=== PATIENT | male | born 1965 | race Caucasian/White ===

== ENCOUNTER 2017-07-09 14:08 | Observation (INO) | payer SELFPAY ==
[~2017-07-09] VITALS: Ht 180.3 cm; Wt 97.5 kg
[~2017-07-09 14:08] MED LIST: BACT800T5 PO; CEPH500C3 PO
[2017-07-09 14:09] VITALS: BP 140/80; PULSE 89; RESP 15; TEMP 98.5; O2SAT 99
--- NOTE | 2017-07-09 16:35 | PD ---
HPI Chief Complaint: Edema Time Seen by Provider: 16:33 Travel History International Travel<30 days: No Contact w/Intl Traveler<30days: No Traveled to known affect area: No History of Present Illness HPI 52-year-old male presents to the ED for evaluation of "2 or 3 day" history of right forearm pain, redness and swelling. Onset while the patient was clearing brush in his backyard. He is unsure if he was bitten by a bug or scratched by a thorn. He endorses pins and needles feeling in the affected hand over the last day. He denies limitations to range of motion. He denies fever, chills, nausea, vomiting. He states that he treated with Neosporin immediately after the incident. He seeks treatment today due to increased edema over the last day. Unsure of last tetanus immunization. [facility] Social History Alcohol Use: No Tobacco Use: No Substance Use: No Allergies-Medications (Allergen,Severity, Reaction): Coded Allergies: No Known Allergies (Unverified , 07/09/17) Reported Meds & Prescriptions Reported Meds & Active Scripts Active No Active Prescriptions or Reported Medications Review of Systems Except as stated in HPI: all other systems reviewed are Neg Physical Exam Narrative GENERAL: Well-nourished, well-developed white male in no acute distress. SKIN: Focused skin assessment warm/dry. HEAD: Normocephalic. EYES: No scleral icterus. No injection or drainage. NECK: Supple, trachea midline. No JVD or lymphadenopathy. CARDIOVASCULAR: Regular rate and rhythm without murmurs, gallops, or rubs. RESPIRATORY: Breath sounds equal bilaterally. No accessory muscle use. GASTROINTESTINAL: Abdomen soft, non-tender, nondistended. MUSCULOSKELETAL: No cyanosis, or edema. FOCUSED RIGHT UPPER EXTREMITY EXAM: 2+ radial pulse. There is significant edema of the hand. Compartments are soft. No crepitus noted. Patient is able to flex and extend the fingers and wrist. There is a single puncture wound of the mid forearm with surrounding erythema, edema and tenderness. There is an area of erythema which extends just proximal to the right axilla. No axillary LAD. Sensation intact to light touch distally. Cap refill less than 2 seconds. BACK: Nontender without obvious deformity. No CVA tenderness. Data Data Last Documented VS Vital Signs Date Time Temp Pulse Resp B/P (MAP) Pulse Ox O2 Delivery O2 Flow Rate FiO2 07/09/17 18:00 65 16 140/88 (105) 100 Room Air 07/09/17 14:09 98.5 Orders Orders Complete Blood Count With Diff (07/09/17 16:24) Comprehensive Metabolic Panel (07/09/17 16:24) Blood Culture (07/09/17 16:24) Tetanus/Diphtheria Tox Adult (Tetanus/Di (07/09/17 16:45) Vancomycin Inj (Vancomycin Inj) (07/09/17 17:30) Sodium Chlor 0.9% 1000 Ml Inj (Ns 1000 M (07/09/17 17:30) Ketorolac Inj (Toradol Inj) (07/09/17 17:30) Admit Order (Ed Use Only) (07/09/17 18:14) Labs Laboratory Tests Test 07/09/17 16:30 White Blood Count 8.1 TH/MM3 Red Blood Count 4.97 MIL/MM3 Hemoglobin 16.1 GM/DL Hematocrit 47.9 % Mean Corpuscular Volume 96.4 FL Mean Corpuscular Hemoglobin 32.3 PG Mean Corpuscular Hemoglobin Concent 33.5 % Red Cell Distribution Width 14.9 % Platelet Count 275 TH/MM3 Mean Platelet Volume 7.4 FL Neutrophils (%) (Auto) 56.1 % Lymphocytes (%) (Auto) 25.9 % Monocytes (%) (Auto) 7.3 % Eosinophils (%) (Auto) 10.4 % Basophils (%) (Auto) 0.3 % Neutrophils # (Auto) 4.5 TH/MM3 Lymphocytes # (Auto) 2.1 TH/MM3 Monocytes # (Auto) 0.6 TH/MM3 Eosinophils # (Auto) 0.8 TH/MM3 Basophils # (Auto) 0.0 TH/MM3 CBC Comment DIFF FINAL Differential Comment Blood Urea Nitrogen 12 MG/DL Creatinine 0.89 MG/DL Random Glucose 92 MG/DL Total Protein 6.9 GM/DL Albumin 3.3 GM/DL Calcium Level 8.3 MG/DL Alkaline Phosphatase 100 U/L Aspartate Amino Transf (AST/SGOT) 19 U/L Alanine Aminotransferase (ALT/SGPT) 30 U/L Total Bilirubin 0.2 MG/DL Sodium Level 136 MEQ/L Potassium Level 4.4 MEQ/L Chloride Level 103 MEQ/L Carbon Dioxide Level 28.0 MEQ/L Anion Gap 5 MEQ/L Estimat Glomerular Filtration Rate 89 ML/MIN MDM Medical Decision Making Medical Screen Exam Complete: Yes Emergency Medical Condition: Yes Differential Diagnosis Cellulitis versus compartment syndrome versus necrotizing fasciitis versus other Narrative Course 52-year-old male presents to the ED for evaluation of "2 or 3 day" history of right forearm pain, redness and swelling. Onset while the patient was clearing brush in his backyard. He is unsure if he was bitten by a bug or scratched by a thorn. He endorses pins and needles feeling in the affected hand and worsened edema of the hand over the last day. He denies limitations to range of motion, fever, chills, nausea, vomiting. He states that he treated with Neosporin immediately after the incident. Last tetanus immunization date unknown. Vitals reviewed. Physical exam reveals an extensive cellulitis of the right upper extremity without crepitus or evidence of compartment syndrome. Origin seems to be a single puncture wound in the right mid forearm with surrounding area of erythema, edema and tenderness. No fluctuance noted. IV was established. Blood cultures were obtained. Patient was administered 1 L of normal saline and 1 g of vancomycin. Tetanus immunization was updated. No leukocytosis noted on the CBC. I discussed this case with Dr. Romo who recommends admission for continued IV antibiotics. The patient is agreeable with this plan. I spoke with one of the residents who agrees to accept the patient to the medicine service. Please see medicine notes for disposition. Scripts No Active Prescriptions or Reported Meds Julienne Mancilla Jul 09, 2017 16:35
[2017-07-09] MEDS ORDERED: TETANUS/DIPHTHERIA TOXOID ADULT 0.5 ML VIAL IM ONE (16:45)
[2017-07-09 17:03] LABS: AUTOMATED NEUTROPHIL # 4.5 TH/MM3 (1.8-7.7); BASOPHIL % 0.3 % (0.0-2.0); EOSINOPHIL # 0.8 TH/MM3 (0-0.4); EOSINOPHIL % 10.4 % (0.0-4.0); HEMATOCRIT 47.9 % (39.0-51.0); HEMO FLAGS DIFF FINAL; LYMPH % 25.9 % (9.0-44.0); LYMPHOCYTE # 2.1 TH/MM3 (1.0-4.8); MEAN CELL VOLUME 96.4 FL (80.0-100.0); MEAN CORPUSCULAR HEMOGLOBIN 32.3 PG (27.0-34.0); MEAN CORPUSCULAR HGB CONC 33.5 % (32.0-36.0); MONO % 7.3 % (0.0-8.0); NEUT % 56.1 % (16.0-70.0); PLATELET COUNT 275 TH/MM3 (150-450); RED BLOOD COUNT 4.97 MIL/MM3 (4.50-5.90); RED CELL DISTRIBUTION WIDTH 14.9 % (11.6-17.2); WHITE BLOOD COUNT 8.1 TH/MM3 (4.0-11.0)
[2017-07-09 17:11] LABS: ALT (GPT) 30 U/L (12-78); ANION GAP 5 MEQ/L (5-15); AST (GOT) 19 U/L (15-37); BLOOD UREA NITROGEN 12 MG/DL (7-18); CHLORIDE 103 MEQ/L (98-107); GLOMERULAR FILTRATION RATE 89 ML/MIN (>89); POTASSIUM 4.4 MEQ/L (3.5-5.1); SODIUM (NA) 136 MEQ/L (136-145)
[2017-07-09 17:14] LABS: ALKALINE PHOSPHATASE 100 U/L (45-117); TOTAL BILIRUBIN ADULT 0.2 MG/DL (0.2-1.0)
[2017-07-09] MEDS ORDERED: SODIUM CHLOR 0.9% 1000 ML INJ 1,000 ML IV ONE (17:30)
[2017-07-09] MEDS ORDERED: KETOROLAC TROMETHAMINE 30 MG/ML (IVP) VIAL IV PUSH ONE (17:30)
[2017-07-09] MEDS ORDERED: VANCOMYCIN INJ 1,000 MG in SODIUM CHLOR 0.9% 250 ML INJ 250 ML IV ONE (17:30)
[2017-07-09 18:00] VITALS: BP 140/88; PULSE 65; RESP 16; O2SAT 100
[2017-07-09] MEDS ORDERED: SODIUM CHLORIDE 0.9% FLUSH 10 ML FLUSH IV FLUSH PRN (18:30)
[2017-07-09] MEDS ORDERED: BISACODYL 10 MG SUPP RECTAL PRN (18:30)
[2017-07-09] MEDS ORDERED: ACETAMINOPHEN/HYDROcodone 325 MG/7.5 MG TAB PO PRN (18:30)
[2017-07-09] MEDS ORDERED: ZOLPIDEM TARTRATE 5 MG TAB PO PRN (18:30)
[2017-07-09] MEDS ORDERED: ACETAMINOPHEN 500 MG CPLT PO PRN (18:30)
[2017-07-09] MEDS ORDERED: ACETAMINOPHEN/HYDROcodone 325 MG/5 MG TAB PO PRN (18:30)
[2017-07-09] MEDS ORDERED: ONDANSETRON HCL 4 MG/2 ML VIAL IVP PRN (18:30)
[2017-07-09] MEDS ORDERED: MAGNESIUM HYDROXIDE SUSP 30 ML CUP PO PRN (18:30)
[2017-07-09] MEDS ORDERED: cloNIDine HCL 0.1 MG TAB PO PRN (18:30)
[2017-07-09] MEDS ORDERED: Vancomycin Consult Pharmacy 1 EA OTHER SCH (18:30)
[2017-07-09] MEDS ORDERED: NALOXONE HCL 0.4 MG/ML AMP IV PUSH PRN (18:30)
[2017-07-09] MEDS ORDERED: LACTULOSE SYRUP 20 GM/30 ML CUP PO PRN (18:30)
[2017-07-09] MEDS ORDERED: KETOROLAC TROMETHAMINE 30 MG/ML (IVP) VIAL IVP PRN (18:30)
[2017-07-09] MEDS ORDERED: SENNOSIDES 8.6 MG TAB PO PRN (18:30)
--- NOTE | 2017-07-09 18:40 | HHI.HP ---
HPI Service Family Medicine Team A Dr. De La Cruz, attending Primary Care Physician No Primary Care Physician Admission Diagnosis right upper extremity cellulitis Diagnoses: International Travel<30 Days: No Contact w/Intl Traveler<30days: No History of Present Illness Patient is a 52-year-old male with no significant PMH who presents for worsening RUE swelling. He states he was working in the yard on Monday and felt a sharp sensation (either a bite or scratch from yard debris). He did not see any bugs. He noticed swelling the next day. He endorses tingling in the right upper extremity since yesterday. He also symptoms worsened in the last 48 hours which prompted him to come to the ED for evaluation. He has been cleaning the arm and tried Neosporin starting yesterday. He has never had swelling like this before. He denies any sick contacts or other people with rash nearby. 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 He notes no recent travel however. He denies history of MRSA or other skin infections. (Yanique Myrick MD R2) Review of Systems Constitutional: DENIES: Fever, Chills, Change in appetite Eyes: DENIES: Blurred vision, Diplopia Ears, nose, mouth, throat: DENIES: Throat pain, Ear Pain Respiratory: DENIES: Cough, Hemoptysis, Sputum production, Shortness of breath Cardiovascular: DENIES: Chest pain, Palpitations Gastrointestinal: DENIES: Abdominal pain, Black stools, Bloody stools, Constipation, Diarrhea, Nausea, Vomiting Genitourinary: DENIES: Urinary frequency, Urgency, Hematuria, Dysuria Musculoskeletal: DENIES: Joint pain, Muscle aches, Stiffness, Back pain, Neck pain Integumentary: COMPLAINS OF: Pruritus, Rash (RUE) Hematologic/lymphatic: DENIES: Bruising, Lymphadenopathy Immunologic/allergic: DENIES: Eczema, Urticaria Neurologic: DENIES: Abnormal gait, Headache, Seizures, Poor Balance Psychiatric: DENIES: Anxiety, Depression (Yanique Myrick MD R2) Past Family Social History Past Medical History Denies history of HTN, DM, COPD, cardiac dz, liver dz, or renal dz Past Surgical History None Reported Medications Reported Meds & Active Scripts Active No Active Prescriptions or Reported Medications (Yanique Mryick MD R2) Allergies: Coded Allergies: No Known Allergies (Unverified , 07/09/17) Active Ordered Medications Inpatient Medications Acetaminophen (Tylenol) 500 mg Q4H PRN PO FEVER >101F; Start 07/09/17 at 18:30 Acetaminophen/ Hydrocodone Bitart ([place] 5-325 Mg) 1 tab Q4H PRN PO PAIN SCALE 1 TO 5; Start 07/09/17 at 18:30 Acetaminophen/ Hydrocodone Bitart ([place] 7.5-325 Mg) 1 tab Q4H PRN PO PAIN SCALE 6 TO 10; Start 07/09/17 at 18:30 Bisacodyl (Dulcolax Supp) 10 mg DAILY PRN RECTAL SEVERE CONSITIPATION; Start 07/09/17 at 18:30 Clonidine (Catapres) 0.1 mg Q6H PRN PO SBP> OR = 180, DBP> OR = 100; Start 07/09/17 at 18:30 Diphenhydramine HCl (Benadryl) 25 mg Q6H PRN PO ITCHING; Start 07/09/17 at 19: 00; Status UNV Ketorolac Tromethamine (Toradol Inj) 30 mg Q6H PRN IVP BREAKTHROUGH PAIN; Start 07/09/17 at 18:30; Stop 07/14/17 at 18:29 Lactulose (Lactulose Liq) 30 ml DAILY PRN PO SEVERE CONSITIPATION; Start at 18:30 Magnesium Hydroxide (Milk Of Magnesia Liq) 30 ml Q12H PRN PO MILD - MODERATE CONSTIPATION; Start 07/09/17 at 18:30 Morphine Sulfate (Morphine Inj) 4 mg Q3H PRN IV PUSH BREAKTHROUGH PAIN; Start 07/09/17 at 19:00; Status UNV Naloxone HCl (Narcan Inj) 0.4 mg UNSCH PRN IV PUSH SEE LABEL COMMENTS; Start 07/09/17 at 18:30 Ondansetron HCl (Zofran Inj) 4 mg Q6H PRN IVP NAUSEA OR VOMITING; Start at 18:30 Pharmacy Profile Note 0 ml @ 0 mls/hr UNSCH OTHER ; Start 07/09/17 at 18:30 Senna/Docusate Sodium (Emma-Colace) 1 tab BID PO ; Start 07/09/17 at 21:00 Sennosides (Senokot) 17.2 mg Q12H PRN PO MODERATE - SEVERE CONSTIPATION; Start 07/09/17 at 18:30 Sodium Chloride (NS Flush) 2 ml UNSCH PRN IV FLUSH FLUSH AFTER USING IV ACCESS ; Start 07/09/17 at 18:30 Tetanus/ Diphtheria Toxoids (Tetanus/ Diphtheria Tox Adult) 0.5 ml ONCE ONCE IM Last administered on 07/09/17t 17:00; Start 07/09/17 at 16:45; Stop 07/09/17 at 16:46; Status DC Vancomycin HCl 1000 mg/Sodium Chloride 250 ml @ 250 mls/hr Q24H IV ; Start 07/09/17 at 18:30; Status UNV Zolpidem Tartrate (Ambien) 5 mg HS PRN PO INSOMNIA; Start 07/09/17 at 18:30 Family History Healthy mother, father, siblings, children Social History Tobacco: 1/2PPD ETOH: Rum and coke, two servings Illicit: denies Lives with girlfriend Has 2 dogs at home Full Code (Yanique Myrick MD R2) Physical Exam Vital Signs Vital Signs Date Time Temp Pulse Resp B/P (MAP) Pulse Ox O2 Delivery O2 Flow Rate FiO2 07/09/17 16:14 16 Room Air 07/09/17 14:09 98.5 89 15 140/80 (100) 99 Physical Exam GENERAL: Well-nourished, well-developed male with athletic build. SKIN: Warm and dry. RUE notable to have non-pitting edema to level of armpit. There is a punctate wound of 2 mm on the proximal lateral forearm approximately 1 in distal to elbow. The area near the wound is markedly erythematous with marked data processing auditor areas of erythema up to level of elbow. The arm is warm to touch. Scattered scratches on the dorsal surfaces on the hands, L>R. Scattered bite holloway on the distal LEs bilaterally. Skin intact otherwise. HEAD: Atraumatic. Normocephalic. EYES: Pupils equal and round. No scleral icterus. No injection or drainage. ENT: No nasal bleeding or discharge. Mucous membranes pink and moist. NECK: Trachea midline. No JVD. CARDIOVASCULAR: Regular rate and rhythm. No murmurs, gallops, or rubs. RESPIRATORY: No accessory muscle use. Clear to auscultation. Breath sounds equal bilaterally. GASTROINTESTINAL: Abdomen soft, non-tender, nondistended. Hepatic and splenic margins not palpable. MUSCULOSKELETAL: Extremities without clubbing, cyanosis, or edema. No obvious deformities. NEUROLOGICAL: Awake and alert. No obvious cranial nerve deficits. Motor grossly within normal limits. 5/5 strength in the arms and legs. Normal speech. PSYCHIATRIC: Appropriate mood and affect; insight and judgment normal. Laboratory Laboratory Tests Test 07/09/17 16:30 White Blood Count 8.1 Red Blood Count 4.97 Hemoglobin 16.1 Hematocrit 47.9 Mean Corpuscular Volume 96.4 Mean Corpuscular Hemoglobin 32.3 Mean Corpuscular Hemoglobin Concent 33.5 Red Cell Distribution Width 14.9 Platelet Count 275 Mean Platelet Volume 7.4 Neutrophils (%) (Auto) 56.1 Lymphocytes (%) (Auto) 25.9 Monocytes (%) (Auto) 7.3 Eosinophils (%) (Auto) 10.4 Basophils (%) (Auto) 0.3 Neutrophils # (Auto) 4.5 Lymphocytes # (Auto) 2.1 Monocytes # (Auto) 0.6 Eosinophils # (Auto) 0.8 Basophils # (Auto) 0.0 CBC Comment DIFF FINAL Differential Comment Blood Urea Nitrogen 12 Creatinine 0.89 Random Glucose 92 Total Protein 6.9 Albumin 3.3 Calcium Level 8.3 Alkaline Phosphatase 100 Aspartate Amino Transf (AST/SGOT) 19 Alanine Aminotransferase (ALT/SGPT) 30 Total Bilirubin 0.2 Sodium Level 136 Potassium Level 4.4 Chloride Level 103 Carbon Dioxide Level 28.0 Anion Gap 5 Estimat Glomerular Filtration Rate 89 Date/Time Source Procedure Growth Status 07/09/17 16:35 Blood Line Aerobic Blood Culture Pending Received 07/09/17 16:35 Blood Line Anaerobic Blood Culture Pending Received (Yanique Myrick MD R2) Result Diagram: 07/09/17 1630 07/09/17 1630 Caprini VTE Risk Assessment Caprini VTE Risk Assessment: Mod/High Risk (score >= 2) Caprini Risk Assessment Model Point Value = 1 Point Value = 2 Point Value = 3 Point Value = 5 Age 41-60 Minor surgery BMI > 25 kg/m2 Swollen legs Varicose veins or History of unexplained or recurrent spontaneous Oral contraceptives or hormone replacement Sepsis (< 1 month) Serious lung disease, including pneumonia (< 1 month) Abnormal pulmonary function Acute myocardial infarction Congestive heart failure (< 1 month) History of inflammatory bowel disease Medical patient at bed rest Age 61-74 Arthroscopic surgery Major open surgery (> 45 min) Laparoscopic surgery (> 45 min) Malignancy Confined to bed (> 72 hours) Immobilizing plaster cast Central venous access Age >= 75 History of VTE Family history of VTE Factor V Leiden Prothrombin [id number] Lupus anticoagulant Anticardiolipin antibodies Elevated serum homocysteine Heparin-induced thrombocytopenia Other congenital or acquired thrombophilia Stroke (< 1 month) Elective arthroplasty Hip, pelvis, or leg fracture Acute spinal cord injury (< 1 month) Prophylaxis Regimen Total Risk Factor Score Risk Level Prophylaxis Regimen 0-1 Low Early ambulation 2 Moderate Order ONE of the following: *Sequential Compression Device (SCD) *Heparin 5000 units SQ BID 3-4 Higher Order ONE of the following medications: *Heparin 5000 units SQ TID *Enoxaparin/Lovenox 40 mg SQ daily (WT < 150 kg, CrCl > 30 mL/min) *Enoxaparin/Lovenox 30 mg SQ daily (WT < 150 kg, CrCl > 10-29 mL/min) *Enoxaparin/Lovenox 30 mg SQ BID (WT < 150 kg, CrCl > 30 mL/min) AND/OR *Sequential Compression Device (SCD) 5 or more Highest Order ONE of the following medications: *Heparin 5000 units SQ TID (Preferred with Epidurals) *Enoxaparin/Lovenox 40 mg SQ daily (WT < 150 kg, CrCl > 30 mL/min) *Enoxaparin/Lovenox 30 mg SQ daily (WT < 150 kg, CrCl > 10-29 mL/min) *Enoxaparin/Lovenox 30 mg SQ BID (WT < 150 kg, CrCl > 30 mL/min) AND *Sequential Compression Device (SCD) (Yanique Myrick MD R2) Assessment and Plan Assessment and Plan Patient is a 52-year-old male with no significant past medical history who presents after 2-day worsening of right upper extremity edema and pain. Differential is includes with erysipelas, cellulitis, abscess, deep venous thrombosis, lymphedema. Low suspicion for Since with no systemic signs or symptoms to indicate diffuse infection. However given the rapid progression of erythema, swelling, and pain, decision to admit for IV antibiotics was made. Cellulitis: Patient presents with gradual progression of right upper extremity edema and erythema suggestive of MRSA cellulitis. It is nonpurulent at this time and reportedly not been draining since ED arrival. Vital signs and lab work on arrival within normal limits. Blood cultures were drawn. * Admit for to observation * Status post vancomycin 1 g IV 1 in ED * Status post 1 L normal saline bolus * Received TD Immunization in ED * Continue vancomycin 1 g IV at this time, pharmacy consult for goal trough 10- 15 * Pain control with Toradol 30mg IV scheduled q6h. [place] 5-325mg q4hr pain 1-5 , [place] 10-325mg q4hr pain 6-10, morphine IV 4mg q3hr breakthrough * Patient was counseled for likely worsening of erythema due to bacterial breakdown after treatment starts * US RUE ordered for DVT screening, cellulitis surveillance * No evidence of compartment syndrome on exam. Neuro checks every 4 hours to monitor closely for signs of compartment syndrome ETOH Use * He states approximately 14 drinks per week use * States he has not consumed alcohol in 2 days * CIWA protocol ordered, will discontinue as indicated Fluids/Electrolytes/Nutrition/Prophylaxis * Fluids: 1L bolus in ED, will keep with PO hydration for now as not meeting sepsis criteria * Electrolytes: monitor and replete as needed * Nutrition: regular diet * DVT Prophylaxis: Early ambulation. Bilateral SCDs ordered. We'll order pharmacologic prophylaxis if indicated * GI Prophylaxis: None indicated Disposition: Likely discharge in approximate 48 hours pending improvement of cellulitis, no evidence of DVT, no fevers, blood cultures negative, improvement of pain Code Status Full code Discussed Condition With Seen and discussed with Dr. Lerner. We'll discuss with Dr. De La Cruz. (Yanique Myrick MD R2) Problem List: (1) Cellulitis of right upper extremity ICD Codes: L03.113 - Cellulitis of right upper limb (Yanique Myrick MD R2) Yanique Myrick MD R2 Jul 09, 2017 18:40 Theresa De La Cruz MD Jul 10, 2017 21:54
[2017-07-09] MEDS ORDERED: VANCOMYCIN INJ 1,000 MG in SODIUM CHLOR 0.9% 250 ML INJ 250 ML IV SCH (19:00)
[2017-07-09] MEDS ORDERED: MORPHINE SULFATE 4 MG/ML INJ IV PUSH PRN (19:00)
[2017-07-09] MEDS ORDERED: diphenhydrAMINE HCL 25 MG CAP PO PRN (19:00)
[2017-07-09] MEDS: SODIUM CHLORIDE 0.9% FLUSH 10 ML FLUSH IV FLUSH SCH (19:55)
[2017-07-09] MEDS: DOCUSATE SODIUM 50 MG/SENNA 8.6 MG TAB PO SCH (19:56)
[2017-07-09] MEDS ORDERED: LORazepam 1 MG TAB PO PRN (20:00)
[2017-07-09] MEDS ORDERED: LORazepam 2 MG TAB PO PRN (20:00)
[2017-07-09] MEDS ORDERED: LORazepam 2 MG/ML VIAL IV PUSH PRN ×4 (20:00)
[2017-07-09] MEDS ORDERED: FLUMAZENIL 0.5 MG/5 ML VIAL IV PUSH PRN (20:00)
[2017-07-09 20:17] VITALS: BP 138/81; PULSE 67; RESP 18; TEMP 98.3; O2SAT 100
[2017-07-09] MEDS ORDERED: PHARMACY ORDERED LAB ONE (20:45)
--- NOTE | 2017-07-09 20:57 | RADRPT ---
EXAM DATE/TIME: 07/09/2017 19:50 [facility] COMPARISON: No previous studies available for comparison. INDICATIONS : Insect bite. MEDICAL HISTORY : Pruitis. Skin problems. SURGICAL HISTORY : None. ENCOUNTER: Initial ACUITY: 1 day PAIN SCORE: 4/10 LOCATION: Right forearm. AREA EVALUATED: Right forearm. FINDINGS: Real-time ultrasound examination was performed of a swollen area in the right forearm. There is subc utaneous tissue thickening and some mild increased flow on color Doppler. No focal or drainable flui d collections identified. CONCLUSION: Thickened mildly hypervascular subcutaneous soft tissues in the forearm. Sabas Pleitez MD on July 09, 2017 at 20:55 Board Certified Radiologist. This report was verified electronically.
[2017-07-09] MEDS ORDERED: VANCOMYCIN 1,000 MG/NS 250 ML IV ONE ×2 (21:00)
[2017-07-09 23:48] VITALS: BP 135/70; PULSE 68; RESP 18; TEMP 98.2; O2SAT 100
[2017-07-10] MEDS: KETOROLAC TROMETHAMINE 30 MG/ML (IVP) VIAL IVP SCH ×4 (00:14→17:59)
[2017-07-10 03:21] VITALS: BP 139/80; PULSE 68; RESP 18; TEMP 98.2; O2SAT 100
[2017-07-10 03:34] VITALS: BP 138/70; PULSE 68; RESP 18; TEMP 98.2; O2SAT 99
[2017-07-10] MEDS: VANCOMYCIN 1,500 MG/NS 500 ML IV SCH ×4 (06:40→17:58)
[2017-07-10 07:12] VITALS: BP 158/72; PULSE 72; RESP 18; TEMP 97.4; O2SAT 98
[2017-07-10] MEDS: DOCUSATE SODIUM 50 MG/SENNA 8.6 MG TAB PO SCH ×2 (09:00→20:15)
[2017-07-10] MEDS: SODIUM CHLORIDE 0.9% FLUSH 10 ML FLUSH IV FLUSH SCH ×2 (09:00→20:15)
[2017-07-10 11:20] VITALS: BP 128/75; PULSE 70; RESP 19; TEMP 97.5; O2SAT 98
[2017-07-10 14:54] LABS: AUTOMATED NEUTROPHIL # 4.8 TH/MM3 (1.8-7.7); BASOPHIL % 0.3 % (0.0-2.0); EOSINOPHIL # 0.6 TH/MM3 (0-0.4); EOSINOPHIL % 8.5 % (0.0-4.0); HEMATOCRIT 48.3 % (39.0-51.0); HEMO FLAGS DIFF FINAL; LYMPH % 18.7 % (9.0-44.0); LYMPHOCYTE # 1.3 TH/MM3 (1.0-4.8); MEAN CELL VOLUME 95.7 FL (80.0-100.0); MEAN CORPUSCULAR HEMOGLOBIN 31.8 PG (27.0-34.0); MEAN CORPUSCULAR HGB CONC 33.2 % (32.0-36.0); MONO % 4.9 % (0.0-8.0); NEUT % 67.6 % (16.0-70.0); PLATELET COUNT 267 TH/MM3 (150-450); RED BLOOD COUNT 5.05 MIL/MM3 (4.50-5.90); WHITE BLOOD COUNT 7.1 TH/MM3 (4.0-11.0)
[2017-07-10 15:41] LABS: BICARBONATE 26.7 MEQ/L (21.0-32.0); POTASSIUM 4.5 MEQ/L (3.5-5.1)
--- NOTE | 2017-07-10 16:53 | HHI.FPPN ---
Subjective Subjective Patient seen and examined with the resident team. Case reviewed and discussed Please refer to resident H&P for further details regarding HPI, ROS, PMH, SurgHx , FH and SocHx In summary, patient is 52yoM presenting with RUE infection He is seen in his hospital bed reporting some improvement with antibiotics overnight. at the bedside. [facility] Objective Objective Laboratory Tests - Abnormals Test 07/10/17 14:22 Eosinophils (%) (Auto) 8.5 % Eosinophils # (Auto) 0.6 TH/MM3 Calcium Level 8.0 MG/DL Anion Gap 4 MEQ/L Vital Signs 07/09/17 07/09/17 07/09/17 07/09/17 18:00 19:22 20:17 23:48 Temp 98.3 98.2 Pulse 65 67 68 Resp 16 18 18 B/P (MAP) 140/88 (105) 138/81 (100) 135/70 (91) Pulse Ox 100 100 100 O2 Delivery Room Air 07/10/17 07/10/17 07/10/17 03:21 07:12 11:20 Temp 98.2 97.4 97.5 Pulse 68 72 70 Resp 18 18 19 B/P (MAP) 139/80 (99) 158/72 (100) 128/75 (92) Pulse Ox 100 98 98 INTAKE & OUTPUT 07/11/17 07:00 Intake Total 2000 ml Balance 2000 ml Physical exam GENERAL: wdwn male, NAD SKIN: Warm and dry. There is erythema surrounding forearm insect bite with some progression proximally toward shoulder HEAD: Normocephalic. AT EYES: No scleral icterus. No injection or drainage. ENT: OP clear. MMM NECK: Supple, trachea midline. No JVD or lymphadenopathy. CARDIOVASCULAR: Regular rate and rhythm without murmurs, gallops, or rubs. RESPIRATORY: Breath sounds equal and clear bilaterally. No accessory muscle use. GASTROINTESTINAL: Abdomen soft, non-tender, nondistended. No rebound. Normal active BS MUSCULOSKELETAL: No cyanosis, there is RUE edema from shoulder to the hand. BACK: Nontender without obvious deformity. No CVA tenderness. NEURO: Awake and alert. Normal speech. NV intact Assessment Assessment 52yoM with: RUE cellulitis EtOH use PLAN PLAN Empiric antibiotic therapy Blood cultures U/s to r/o DVT Patient seen and examined. Case reviewed and discussed Agree with plan of care as discussed with me and documented in the resident note. Theresa De La Cruz MD Jul 10, 2017 16:53
[2017-07-10 19:45] VITALS: BP 144/82; PULSE 65; RESP 18; TEMP 98.4; O2SAT 97
[2017-07-11 00:13] VITALS: BP 138/75; PULSE 68; RESP 18; TEMP 98; O2SAT 98
[2017-07-11] MEDS: VANCOMYCIN 1,500 MG/NS 500 ML IV SCH ×2 (06:08)
[2017-07-11] MEDS: KETOROLAC TROMETHAMINE 30 MG/ML (IVP) VIAL IVP SCH ×2 (06:09)
[2017-07-11 07:23] VITALS: BP 126/71; PULSE 66; RESP 18; TEMP 97.5; O2SAT 99
[2017-07-11] MEDS: DOCUSATE SODIUM 50 MG/SENNA 8.6 MG TAB PO SCH (09:00)
[2017-07-11] MEDS: SODIUM CHLORIDE 0.9% FLUSH 10 ML FLUSH IV FLUSH SCH (09:00)
[2017-07-11 10:41] LABS: AUTOMATED NEUTROPHIL # 5.4 TH/MM3 (1.8-7.7); BASOPHIL % 0.5 % (0.0-2.0); EOSINOPHIL # 0.8 TH/MM3 (0-0.4); EOSINOPHIL % 8.9 % (0.0-4.0); HEMATOCRIT 46.8 % (39.0-51.0); HEMO FLAGS DIFF FINAL; LYMPH % 20.6 % (9.0-44.0); LYMPHOCYTE # 1.7 TH/MM3 (1.0-4.8); MEAN CELL VOLUME 95.5 FL (80.0-100.0); MEAN CORPUSCULAR HEMOGLOBIN 32.2 PG (27.0-34.0); MEAN CORPUSCULAR HGB CONC 33.8 % (32.0-36.0); MONO % 5.7 % (0.0-8.0); NEUT % 64.3 % (16.0-70.0); PLATELET COUNT 267 TH/MM3 (150-450); RED CELL DISTRIBUTION WIDTH 14.5 % (11.6-17.2); WHITE BLOOD COUNT 8.4 TH/MM3 (4.0-11.0)
[2017-07-11 11:09] LABS: BICARBONATE 23.9 MEQ/L (21.0-32.0); POTASSIUM 3.6 MEQ/L (3.5-5.1)
--- NOTE | 2017-07-11 12:16 | HHI.FPPN ---
Subjective Remarks Patient seen and examined this morning. No problems overnight. No increased pain in arm. Some mild pruritus. Reports swelling has improved but still is having difficulty fully closing exam. No other complaints overnight. No nausea, vomiting, fever, chills, chest pain, shortness of breath, abdominal pain. (Elijah Lerner MD R1) Objective Vitals Vital Signs Date Time Temp Pulse Resp B/P (MAP) Pulse Ox O2 Delivery O2 Flow Rate FiO2 07/11/17 07:23 97.5 66 18 126/71 (89) 99 07/11/17 00:13 98.0 68 18 138/75 (96) 98 07/10/17 19:45 98.4 65 18 144/82 (102) 97 I/O 07/10/17 07/10/17 07/10/17 07/11/17 07/11/17 07/11/17 07:00 15:00 23:00 07:00 15:00 23:00 Intake Total 2000 ml Balance 2000 ml Intake IV Total 2000 ml (Elijah Lerner MD R1) Result Diagram: 07/11/1720 07/11/17 0920 Objective Remarks GENERAL: Well-nourished, well-developed male with athletic build. SKIN: Warm and dry. Improved erythema and swelling in forearm, minimally improved in hand. There is a punctate wound of 2 mm on the proximal lateral forearm approximately 1 in distal to elbow. The area near the wound is markedly erythematous with marked wire walker areas of erythema up to level of elbow. The arm is warm to touch. Scattered scratches on the dorsal surfaces on the hands, L >R. Scattered bite holloway on the distal LEs bilaterally. Skin intact otherwise. HEAD: Atraumatic. Normocephalic. EYES: Pupils equal and round. No scleral icterus. No injection or drainage. ENT: No nasal bleeding or discharge. Mucous membranes pink and moist. NECK: Trachea midline. No JVD. CARDIOVASCULAR: Regular rate and rhythm. No murmurs, gallops, or rubs. RESPIRATORY: No accessory muscle use. Clear to auscultation. Breath sounds equal bilaterally. GASTROINTESTINAL: Abdomen soft, non-tender, nondistended. Hepatic and splenic margins not palpable. MUSCULOSKELETAL: Extremities without clubbing, cyanosis. No obvious deformities. NEUROLOGICAL: Awake and alert. No obvious cranial nerve deficits. Motor grossly within normal limits. 5/5 strength in the arms and legs. Normal speech. PSYCHIATRIC: Appropriate mood and affect; insight and judgment normal. (Elijah Lerner MD R1) A/P Assessment and Plan Patient is a 52-year-old male with no significant past medical history who presents after 2-day worsening of right upper extremity edema and pain. Differential is includes with erysipelas, cellulitis, abscess, deep venous thrombosis, lymphedema. Low suspicion for Since with no systemic signs or symptoms to indicate diffuse infection. However given the rapid progression of erythema, swelling, and pain, decision to admit for IV antibiotics was made. Cellulitis: Patient presents with gradual progression of right upper extremity edema and erythema suggestive of MRSA cellulitis. It is nonpurulent at this time and reportedly not been draining since ED arrival. Vital signs and lab work on arrival within normal limits. Blood cultures were drawn. * Admit for to observation * Status post vancomycin 1 g IV 1 in ED * Status post 1 L normal saline bolus * Received TD Immunization in ED * Continue vancomycin 1 g IV at this time, pharmacy consult for goal trough 10- 15 * Pain control with Toradol 30mg IV scheduled q6h. [place] 5-325mg q4hr pain 1-5 , [place] 10-325mg q4hr pain 6-10, morphine IV 4mg q3hr breakthrough * Patient was counseled for likely worsening of erythema due to bacterial breakdown after treatment starts * US RUE ordered for DVT screening, cellulitis surveillance * No evidence of compartment syndrome on exam. Neuro checks every 4 hours to monitor closely for signs of compartment syndrome ETOH Use * He states approximately 14 drinks per week use * States he has not consumed alcohol in 2 days * CIWA protocol ordered, will discontinue as indicated Fluids/Electrolytes/Nutrition/Prophylaxis * Fluids: 1L bolus in ED, will keep with PO hydration for now as not meeting sepsis criteria * Electrolytes: monitor and replete as needed * Nutrition: regular diet * DVT Prophylaxis: Early ambulation. Bilateral SCDs ordered. We'll order pharmacologic prophylaxis if indicated * GI Prophylaxis: None indicated Disposition: Likely discharge in approximate 48 hours pending improvement of cellulitis, no evidence of DVT, no fevers, blood cultures negative, improvement of pain (Elijah Lerner MD R1) Attending Attestation Patient seen and examined with the resident team. Case reviewed and discussed Agree with plan of care as discussed with me and documented in the resident note. (Verzal,Theresa R. MD) Problem List: (1) Cellulitis of right upper extremity ICD Codes: L03.113 - Cellulitis of right upper limb Status: Acute Plan: Cellulitis of right lower arm. Marked edema improving but persistent in hand, improved in arm. Erythema improving. Difficulty with grasp due to pain. * Status post vancomycin 1g IV x2 days * Will begin by mouth Bactrim DS every 12 hours regimen * Received TD Immunization in ED * Pain control with Toradol 30mg IV scheduled q6h. [place] 5-325mg q4hr pain 1-5 , [place] 10-325mg q4hr pain 6-10, morphine IV 4mg q3hr breakthrough * Follow-up OT assessment and plan * Patient was counseled for likely worsening of erythema due to bacterial breakdown after treatment starts * US without evidence of DVT * No evidence of compartment syndrome on exam. Neuro checks every 4 hours to monitor closely for signs of compartment syndrome (2) Alcohol use ICD Codes: Z78.9 - Other specified health status Plan: * He states approximately 14 drinks per week use * States he has not consumed alcohol since 2 days prior to admission * CIWA protocol ordered, will discontinue as indicated (3) FEN Plan: * Fluids: 1L bolus in ED, will keep with PO hydration for now as not meeting sepsis criteria * Electrolytes: monitor and replete as needed * Nutrition: regular diet * DVT Prophylaxis: Early ambulation. Bilateral SCDs ordered. We'll order pharmacologic prophylaxis if indicated * GI Prophylaxis: None indicated (Elijah Lerner MD R1) Elijah Lerner MD R1 Jul 11, 2017 12:16 Theresa De La Cruz MD Jul 19, 2017 09:26
[2017-07-11] MEDS ORDERED: KETO10 PO (12:25)
[2017-07-11] MEDS ORDERED: SULF1TAB23 PO (12:26)
--- NOTE | 2017-07-11 12:27 | HHI.DCPOC ---
Discharge Care Plan Diagnosis: (1) Cellulitis of right upper extremity Goals to Promote Your Health * To prevent worsening of your condition and complications * To maintain your health at the optimal level Directions to Meet Your Goals Take your medications as prescribed Follow your dietary instruction Follow activity as directed Keep your appointments as scheduled Take your immunizations and boosters as scheduled If your symptoms worsen call your PCP, if no PCP go to Urgent Care Center or Emergency Room Smoking is Dangerous to Your Health. Avoid second hand smoke Call the 24-hour hour crisis hotline for domestic abuse at Yanique Myrick MD R2 Jul 11, 2017 12:27 Theresa De La Cruz MD Jul 19, 2017 09:25
[2017-07-11] MEDS ORDERED: SULFAMETHOXAZOLE-TRIMETHOPRIM DS 800-160 MG TAB PO SCH (12:30)
[2017-07-11] MEDS ORDERED: KETOROLAC TROMETHAMINE 10 MG TAB PO SCH (12:30)
--- NOTE | 2017-07-11 15:50 | HHI.DS ---
Discharge Summary Admission Date Jul 09, 2017 at 18:16 Admitting Diagnosis right upper extremity cellulitis (1) Cellulitis of right upper extremity Diagnosis: Principal Plan: Cellulitis of right lower arm. Marked edema improving but persistent in hand, improved in arm. Erythema improving. Difficulty with grasp due to pain. * Status post vancomycin 1g IV x2 days * Will begin by mouth Bactrim DS every 12 hours regimen * Received TD Immunization in ED * Pain control with Toradol 30mg IV scheduled q6h. [place] 5-325mg q4hr pain 1-5 , [place] 10-325mg q4hr pain 6-10, morphine IV 4mg q3hr breakthrough * Follow-up OT assessment and plan * Patient was counseled for likely worsening of erythema due to bacterial breakdown after treatment starts * US without evidence of DVT * No evidence of compartment syndrome on exam. Neuro checks every 4 hours to monitor closely for signs of compartment syndrome ICD Codes: L03.113 - Cellulitis of right upper limb Status: Acute (2) Alcohol use Diagnosis: Secondary Plan: * He states approximately 14 drinks per week use * States he has not consumed alcohol since 2 days prior to admission * CIWA protocol ordered, will discontinue as indicated ICD Codes: Z78.9 - Other specified health status (3) FEN Plan: * Fluids: 1L bolus in ED, will keep with PO hydration for now as not meeting sepsis criteria * Electrolytes: monitor and replete as needed * Nutrition: regular diet * DVT Prophylaxis: Early ambulation. Bilateral SCDs ordered. We'll order pharmacologic prophylaxis if indicated * GI Prophylaxis: None indicated Brief History Patient is a 52-year-old male with no significant PMH who presents for worsening RUE swelling. He states he was working in the yard on Monday and felt a sharp sensation (either a bite or scratch from yard debris). He did not see any bugs. He noticed swelling the next day. He endorses tingling in the right upper extremity since yesterday. He also symptoms worsened in the last 48 hours which prompted him to come to the ED for evaluation. He has been cleaning the arm and tried Neosporin starting yesterday. He has never had swelling like this before. He denies any sick contacts or other people with rash nearby. 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 He notes no recent travel however. He denies history of MRSA or other skin infections. CBC/BMP: 07/11/17 0920 07/11/17 0920 Significant Findings Laboratory Tests Test 07/09/17 16:30 07/10/17 14:22 07/11/17 05:18 07/11/17 09:20 Eosinophils (%) (Auto) 10.4 % (0.0-4.0) 8.5 % (0.0-4.0) 8.9 % (0.0-4.0) Eosinophils # (Auto) 0.8 TH/MM3 (0-0.4) 0.6 TH/MM3 (0-0.4) 0.8 TH/MM3 (0-0.4) Albumin 3.3 GM/DL (3.4-5.0) Calcium Level 8.3 MG/DL (8.5-10.1) 8.0 MG/DL (8.5-10.1) 8.0 MG/DL (8.5-10.1) Anion Gap 4 MEQ/L (5-15) Vancomycin Level Trough 12.9 MCG/ML (5.0-10.0) Random Glucose 113 MG/DL (74-106) Estimat Glomerular Filtration Rate 84 ML/MIN (>89) PE at Discharge GENERAL: Well-nourished, well-developed male with athletic build. SKIN: Warm and dry. Improved erythema and swelling in forearm, minimally improved in hand. There is a punctate wound of 2 mm on the proximal lateral forearm approximately 1 in distal to elbow. 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 The arm is warm to touch. Scattered scratches on the dorsal surfaces on the hands, L >R. Scattered bite holloway on the distal LEs bilaterally. Skin intact otherwise. HEAD: Atraumatic. Normocephalic. EYES: Pupils equal and round. No scleral icterus. No injection or drainage. ENT: No nasal bleeding or discharge. Mucous membranes pink and moist. NECK: Trachea midline. No JVD. CARDIOVASCULAR: Regular rate and rhythm. No murmurs, gallops, or rubs. RESPIRATORY: No accessory muscle use. Clear to auscultation. Breath sounds equal bilaterally. GASTROINTESTINAL: Abdomen soft, non-tender, nondistended. Hepatic and splenic margins not palpable. MUSCULOSKELETAL: Extremities without clubbing, cyanosis. No obvious deformities. NEUROLOGICAL: Awake and alert. No obvious cranial nerve deficits. Motor grossly within normal limits. 5/5 strength in the arms and legs. Normal speech. PSYCHIATRIC: Appropriate mood and affect; insight and judgment normal. Hospital Course Patient presented to the ED 07/09 for right upper extremity cellulitis and progressing edema. Not septic, blood cultures without growth. Received 2 days of IV vancomycin 1 g. Little change in edema 07/10, decrease in edema and signs of cellulitis 07/11. Transitioned to by mouth Bactrim prior to discharge. Pt Condition on Discharge: Stable Discharge Disposition: Discharge Home Discharge Instructions DIET: Follow Instructions for: As Tolerated, No Restrictions Activities you can perform: Regular-No Restrictions Follow up Referrals: PCP Follow-up - 1 Week New Orders: Occupational Therapy - 2 Days New Medications: Ketorolac (Ketorolac) 10 Mg Tab 10 MG PO Q6HR, #12 TAB Take 1 pill every 6 hours as needed. Take no more than 4 pills per day. Sulfamethoxazole-Trimethoprim (Sulfamethoxazole-Trimethoprim) 800-160 Mg Tab 1 TAB PO Q12HR, #14 TAB Take one tab every 12 hr. Take until completed Elijah Lerner MD R1 Jul 11, 2017 15:50
[2017-07-11 16:02] VITALS: BP 136/82; PULSE 64; RESP 20; TEMP 97.5; O2SAT 98
[2017-07-13] MEDS ORDERED: PHARMACY ORDERED LAB ONE (05:45)
== END 2017-07-11 18:03 | disposition home or self-care (01) ==
LOC: NEPD 14:08 → NEDA 18:16 → NEPHCDU 19:23
PROVIDERS: ADMIT Family Medicine; ATTEND Family Medicine
DX: L03.113 Cellulitis of right upper limb (principal)
CPT/HCPCS: 76882; 80048; 80053; 80202; 85025; 85652; 87040; 90714; 96361; 96365; 96366; 96375; 96376; G0378; G8987-GO; G8988-GO; J1885; J3370; J7030; J7040; J7050

== ENCOUNTER 2017-09-27 18:31 | Emergency (ER) | payer SELFPAY ==
[~2017-09-27 18:31] MED LIST changes: -BACT800T5 PO; -CEPH500C3 PO; +KETO10 PO; +SULF1TAB23 PO
[2017-09-27 18:33] VITALS: BP 141/76; PULSE 95; RESP 16; TEMP 98.6; O2SAT 97
--- NOTE | 2017-09-27 19:20 | PD ---
HPI Chief Complaint: Skin Problem Time Seen by Provider: 18:41 Travel History International Travel<30 days: No Contact w/Intl Traveler<30days: No Traveled to known affect area: No History of Present Illness HPI 52-year-old male presents to the emergency department complaining of lesions in his left axilla for 1 week. Patient states that he had these "a while ago" but has not had recurrence for a while. Patient states that he believes that his hydradenitis suppurativa. Patient has not followed up with a primary care physician regarding this. Patient denies bites or stings. States the pain is mild to moderate, denies radiation of pain. Patient has not taken any medication for his pain. Denies fever or chills. PFSH Past Medical History Blood Disorders: No Cancer: No Cardiovascular Problems: No Endocrine: No Genitourinary: No Immune Disorder: No Musculoskeletal: No Neurologic: No Psychiatric: No Reproductive: No Respiratory: No Social History Alcohol Use: No Tobacco Use: No Substance Use: No Allergies-Medications (Allergen,Severity, Reaction): Coded Allergies: No Known Allergies (Unverified , 07/09/17) Reported Meds & Prescriptions Reported Meds & Active Scripts Active Bactrim DS (Sulfamethoxazole-Trimethoprim) 800-160 Mg Tab 1 Tab PO BID Sulfamethoxazole-Trimethoprim 800-160 Mg Tab 1 Tab PO Q12HR Take one tab every 12 hr. Take until completed Ketorolac (Ketorolac Tromethamine) 10 Mg Tab 10 Mg PO Q6HR Take 1 pill every 6 hours as needed. Take no more than 4 pills per day. Review of Systems Except as stated in HPI: all other systems reviewed are Neg Physical Exam Narrative GENERAL: Well-nourished, well-developed patient. SKIN: Focused skin assessment warm/dry. Left axillary- 2 cm x 5 mm oval lesion with central fluctuance- tender to palpation. 1.5cm by 5 cm oval lesion with central fluctuance tender to palpation. No extension of the erythema. No edema. No lymphangitic Spread. HEAD: Normocephalic. EYES: No scleral icterus. No injection or drainage. NECK: Supple, trachea midline. No JVD or lymphadenopathy. CARDIOVASCULAR: Regular rate and rhythm without murmurs, gallops, or rubs. RESPIRATORY: Breath sounds equal bilaterally. No accessory muscle use. MUSCULOSKELETAL: No cyanosis, or edema. BACK: Nontender without obvious deformity. No CVA tenderness. Data Data Last Documented VS Vital Signs Date Time Temp Pulse Resp B/P (MAP) Pulse Ox O2 Delivery O2 Flow Rate FiO2 09/27/17 19:32 09/27/17 18:33 98.6 95 16 97 Orders Orders Sulfamet-Trimeth Ds 800-160 Mg (Bactrim (09/27/17 19:30) Ed Discharge Order (09/27/17 19:22) [facility] Medical Decision Making Medical Screen Exam Complete: Yes Emergency Medical Condition: Yes Differential Diagnosis Abscess, hidradenitis suppurativa, cellulitis, impetigo Narrative Course 52-year-old male presents to the emergency department complaining of lesions in his left axilla for 1 week. Patient states that he had these "a while ago" but has not had recurrence for a while. Patient states that he believes that his hydradenitis suppurativa. Patient has not followed up with a primary care physician regarding this. Patient denies bites or stings. States the pain is mild to moderate, denies radiation of pain. Patient has not taken any medication for his pain. Denies fever or chills. Vital signs stable. Physical exam consistent with abscesses of the left axilla Incision and drainage performed-minimal expression of exudate. Bactrim administered in the emergency department. Bactrim for outpatient use. Advised on wound care. Advised follow-up with primary care physician within 2-3 days. Advised to return to the ED for worsening or persistent symptoms. Procedures Procedure Narrative INCISION AND DRAINAGE OF ABSCESS: The area was prepped and was sterilely draped. A subcutaneous wheal of [-] % Xylocaine [-] with a total number [-] mL was used to anesthetize the area properly. A number [-] scalpel was used to make a [-] -cm incision across the area of the abscess. The abscess was drained , complex loculations were broken down, and irrigated with normal saline. Cultures were obtained. Quarter inch iodoform packing was placed in the wound. Sterile dressing applied. Patient advised to have packing removed in two days. Diagnosis Primary Impression: Abscess Referrals: Primary Care Physician Additional Instructions: Keep area clean and dry for 24 hours. Take antibiotics as prescribed. Change dressings daily. Follow-up with a primary care physician within 2-3 days. Return to the firm for worsening or persistent symptoms. Scripts Sulfamethoxazole-Trimethoprim (Bactrim DS) 800-160 Mg Tab 1 TAB PO BID for Infection, #20 TAB 0 Refills Prov: Tejinder Narayan MD 09/27/17 Disposition: 01 DISCHARGE HOME Condition: Stable Jennifer Willis Sep 27, 2017 19:20
[2017-09-27] MEDS ORDERED: BACT800T5 PO (19:21)
[2017-09-27] MEDS ORDERED: SULFAMETHOXAZOLE-TRIMETHOPRIM DS 800-160 MG TAB PO ONE (19:30)
== END 2017-09-27 19:33 | disposition home or self-care (01) ==
LOC: NEPK 18:31
DX: L02.412 Cutaneous abscess of left axilla (principal); Z79.899 Other long term (current) drug therapy
CPT/HCPCS: 10060